=== PATIENT | female | born 1970 | race Caucasian/White ===

== ENCOUNTER 2024-11-21 16:24 | Emergency (ER) | payer OTHER ==
[~2024-11-21] VITALS: Ht 157.5 cm; Wt 56.7 kg
[2024-11-21] MEDS ORDERED: ACYC200C31 PO (17:13)
[2024-11-21 18:11] VITALS: BP 124/71; O2SAT 100
== END 2024-11-21 18:11 | disposition home or self-care (01) ==
LOC: ER 16:24
DX: H16.9 Unspecified keratitis (principal)
CPT/HCPCS: A4606; A4663